=== PATIENT | female | born 1950 | race Caucasian/White ===

== ENCOUNTER 2016-12-15 23:30 | Emergency (ER) | payer OTHER ==
[~2016-12-15] VITALS: Ht 152.4 cm; Wt 75.0 kg
[2016-12-15 23:37] VITALS: BP 158/82; PULSE 77; RESP 16; O2SAT 100
--- NOTE | 2016-12-15 23:41 | ED.REPORT ---
HPI-Extremity Problem Lower Date of Service Dec 15, 2016 ED Provider: Dr. Bosch 66 y/o female with a hx of DM presents to the ED complaining of left ankle pain after she slipped and twisted it 4 hours ago. Associated sx include numbness and tingling in the left foot. She denies lack of sensation in the left foot, hitting her head and losing consciousness. There are no other complaints at this time. Nursing Notes Stated Complaint: L ANKLE INJURY S/P FALL Chief Complaint: Extremity Trauma Nursing Notes Reviewed: Yes Allergies: Uncoded Allergies: SULFA (Allergy, Mild, 12/15/16) Scheduled PRN Ibuprofen (Ibuprofen) 600 Mg Tablet 600 MG PO QID PRN PRN For Pain General Time Seen by MD: 23:40 Chief Complaint Ankle injury left Hx Obtained From: Patient Arrived By: Walk-in Onset Occurred: 1 - 4 hours ago Symptom Duration: Since onset Caused by: Fall on ground Location: : Ankle left Quality: Painful Severity: Current: Moderate Severity: Maximum: Moderate Recent Healthcare: No recent doctor visit Similar Sx Previous: No Past Medical History Past Medical History Reports: Diabetes mellitus Past Surgical History none reported Social History Other Social History: Good social support Ambulatory Status Independent Review of Systems Denies: lack of sensation in left foot Reports: tingling sensation in left foot Musculoskeletal: Reports: Joint pain (left ankle) Neurologic: Reports: Numbness (in left foot), Denies: Change LOC Complete sys rev & neg: except as marked. Physical Exam Initial Vital Signs Vital Signs (First) Date Time Temp Pulse Resp B/P Pulse Ox O2 Delivery O2 Flow Rate FiO2 12/15/16 23:37 37.2 77 16 158/82 100 Room Air Initial VS: Reviewed Head / Eyes: Atraumatic, Normocephalic, PERRL Neck: Supple, Non-tender, Full range of motion Respiratory: No respiratory distress Cardiovascular: Intact distal pulses Upper Extremities: Vascular intact, Neuro intact, No swelling, No tenderness Skin: Warm, Dry, No cyanosis Neurologic: Alert, Oriented, Nonfocal Lower Extremity / Pelvis / MS: Atraumatic, Full range of motion, No swelling, Non-tender, No erythema, No deformity, Neurologic intact, Vascular intact Ankle / Foot: No deformity, Neurologic intact, Vascular intact Left lateral malleolus tenderness General/Constitutional: Awake, Alert, Cooperative Interpretation & Diagnostics X-Ray Interpretation Xray Interpretation: No fracture X-Ray Ordered: Ankle left Interpretation / Wet Read by: Wet read ED physician Procedures Splint Application - Fx Mgt Splint Application- Fx Mgt: Air cast stirrup splint was applied to the left ankle. Time: 00:27 Procedure Performed by: Farm Adviser Post-Procedure / Complications: Cap refill normal, Post splint vascular nl, Post splint neuro nl, Condition improved, Tolerated procedure well, Patient stable Re-Eval/Medical Decision Med Decision/Clinical Course 66-year-old with a twisted ankle and negative x-rays. No neurovascular injury. Home in an Karlos wrap and Aircast splint with crutches. Ibuprofen when necessary. Follow-up with PCP. Re-Evaluation/Progress : Time of Eval: 00:40 Re-Evaluation/Progress Note: Rechecked pt. Discussed imaging results, diagnosis and plan to discharge. Pt understands and agrees with the plan. F/U instruction and RTER warning given. All questions addressed. Counseled Regarding: Diagnosis, Need for follow-up, When/why to return to ED Discharge & Departure Impression: Primary Impression: Ankle sprain Encounter type: initial encounter Involved ligament of ankle: unspecified ligament Laterality: right Qualified Code: S93.401A - Sprain of unspecified ligament of right ankle, initial encounter Disposition: Home Discharge Condition All VS Reviewed: Yes Condition: Stable Patient Instructions: Ankle Sprain (GEN) Additional Instructions: Ice for the first 24 hours. After twenty-four hours, you can switch over to heat three or four times a day. Keep your foot elevated. Use crutches and nonweightbearing status on that ankle as long as it is tender to bear weight. Once you can transition from the crutches to the splint alone, without pain, continue to use the splint for at least another week or two. Wear the splint as long as it is tender to bear weight. Remove the splint and the Karlos wrap to go to sleep. Follow up with your primary care provider for further evaluation if needed. Return to the emergency room if any immediate issues. Referrals: Carina Aguirre MD (PCP) Scribe Attestation Portions of this note were transcribed by Sky Glaser. I,, personally performed the history, physical exam and medical decision-making;I reviewed and confirmed the accuracy of the information in the transcribed note. Signed by Sekou Carreno. 12/16/16 copies to: Carina Aguirre MD, Christopher W MD Dec 15, 2016 23:41 Sky Glaser Dec 16, 2016 01:28
[2016-12-16] MEDS ORDERED: IBUP-1827 PO (00:34)
[2016-12-16 00:56] VITALS: BP 162/89; PULSE 85; RESP 18; O2SAT 100
--- NOTE | 2016-12-16 09:31 | DRSVH ---
PROCEDURE: X-RAY LEFT ANKLE, MINIMUM THREE VIEWS ([id number]) INDICATIONS: Slip & Fall TECHNIQUE: 3 views of the ankle were acquired. COMPARISON: None. FINDINGS: Bones: There is a small ossicle dorsal to the anterior talus suggestive of a small avulsion fragment . Ankle mortise is normally aligned. No suspicious bony lesions. Soft tissues: There is overlying soft tissue swelling on the dorsal aspect of the anterior talus. N o tibiotalar joint effusion. Achilles tendon appears normal. IMPRESSION: 1. Small ossicle likely representing a small avulsion fragment along the dorsal aspect of the anteri or talus. Dictated by: Girish Momin M.D. on 12/16/2016 at 9:28 Approved by: Girish Momin M.D. on 12/16/2016 at 9:30
== END 2016-12-16 00:58 | disposition home or self-care (01) ==
LOC: SED 23:30
DX: S93.402A Sprain of unspecified ligament of left ankle, initial encounter (principal); W01.0XXA Fall on same level from slipping, tripping and stumbling without subsequent striking against object, initial encounter; Y93.89 Activity, other specified; Y92.9 Unspecified place or not applicable; Y99.8 Other external cause status; E11.9 Type 2 diabetes mellitus without complications; Z88.2 Allergy status to sulfonamides